=== PATIENT | male | born 2000 | race Caucasian/White ===

== ENCOUNTER → 2020-11-26 13:55 | Outpatient (CLI) | payer OTHER, SELFPAY ==
[2020-11-26] MEDS: COVID-19 VACC, Ad26(JANSSEN)/PF 0.5 ML IM (14:03)
== END ==
PROVIDERS: Family Provider Pediatrics; PCP Pediatrics; Visit Provider Internal Medicine
DX: Z23 Encounter for immunization (principal)
CPT/HCPCS: 0031A; 91303